=== PATIENT | male | born 1945 | race Caucasian/White ===

== ENCOUNTER 2022-08-31 11:36 | Outpatient (CLI) | payer MEDICARE, BC ==
[2022-08-31] MEDS ORDERED: Iopamidol 370 76% 100 ML VIAL ONE (12:18)
== END 2022-08-31 11:37 | disposition home or self-care (01) ==
LOC: CSHCT 11:36
PROVIDERS: ATTEND Thoracic Surgery (Cardiothoracic Vascular Surgery)
DX: I63.233 Cerebral infarction due to unspecified occlusion or stenosis of bilateral carotid arteries (principal); I67.2 Cerebral atherosclerosis
CPT/HCPCS: 70498; 82565